=== PATIENT | male | born 1980 | race Caucasian/White ===

== ENCOUNTER → 2016-11-23 | Outpatient (CLI) | payer BC ==
[2016-11-23 11:11] LABS: CHLORIDE,CL 106 mmol/L (98-110); SODIUM,NA 139 mmol/L (136-146)
== END | disposition home or self-care (01) ==
LOC: MW.CHFP 10:35
PROVIDERS: ATTEND Nurse Practitioner Family
DX: E29.1 Testicular hypofunction (principal)
CPT/HCPCS: 36415; 80053; 80061; 84402; 84403; 85027

== ENCOUNTER 2017-06-24 10:05 | Emergency (ER) | payer BC ==
--- NOTE | 2017-06-24 10:50 | EDM.PDOC ---
ED HPI GENERAL MEDICAL PROBLEM - General Chief Complaint: General Stated Complaint: BLEEDING CYSTS Time Seen by Provider: 06/24/17 10:37 Source of Information: Reports: Patient History Limitations: Reports: No Limitations - History of Present Illness INITIAL COMMENTS - FREE TEXT/NARRATIVE: History of present illness: []This patient was at [facility] and was noted to have blood coming from his buttock. He was sent to the emergency room to be evaluated by Dr. Manrique for a pilonidal cyst. Patient denies any pain states he has never had these symptoms in the past and denies any fevers or chills. Review of systems: As per history of present illness and below otherwise all systems reviewed and negative. Past medical history: As per history of present illness and as reviewed below otherwise noncontributory. Surgical history: As per history of present illness and as reviewed below otherwise noncontributory. Social history: No reported history of drug or alcohol abuse. Family history: As per history of present illness and as reviewed below otherwise noncontributory. Physical exam: General: Well developed, well nourished in NAD HEENT: Atraumatic, normocephalic, pupils reactive, negative for conjunctival pallor or scleral icterus, mucous membranes moist, throat clear, neck supple, nontender, trachea midline. Lungs: Clear to auscultation, breath sounds equal bilaterally, chest nontender. Heart: S1S2, regular, negative for clicks, rubs, or JVD. Abdomen: Soft, nondistended, nontender. Negative for masses or hepatosplenomegaly. Negative for costovertebral tenderness. Pelvis: Stable nontender. Genitourinary: Deferred. Rectal: patient has a 0.5 cm opening at the superior cleft of the buttocks blood. She does not appear to be any purulent fluid and there is no active bleeding. Extremities: Atraumatic, negative for cords or calf pain. Neurovascular unremarkable. Neuro: Awake, alert, oriented. Cranial nerves II through XII unremarkable. Cerebellum unremarkable. Motor and sensory unremarkable throughout. Exam nonfocal. Diagnostics: [] Therapeutics: [] Impression: [] pilonidal cyst spontaneously opened and drained Plan: [] follow-up with Dr. MANRIQUE next week, clindamycin 4 times a day for 10 days, tramadol for pain if needed. Keep the area clean return if any fevers worsening pain or change in symptoms occur Definitive disposition and diagnosis as appropriate pending reevaluation and review of above. Sacral Pain Score (Numeric/FACES): 4 - Related Data Allergies Allergy/AdvReac Type Severity Reaction Status Date / Time milk Allergy Stomach Verified 06/24/17 10:20 Upset wheat Allergy Rash Verified 06/24/17 10:20 Home Meds: Home Meds Baclofen 20 mg PO DAILY 02/02/15 [History] Gabapentin 600 mg PO BEDTIME 02/02/15 [History] Lidocaine 5% [Lidoderm 5%] 1 patch TRDERM Q24H 02/02/15 [History] Testosterone Cypionate [Depo-Testosterone] 200 mg IM ASDIRECTED 02/02/15 [ History] Venlafaxine HCl 75 mg PO TID 02/02/15 [History] traZODone 1 tab PO BEDTIME 02/02/15 [History] Diclofenac Sodium [Voltaren] 75 mg PO BID 01/22/16 [History] Ondansetron HCl [Ondansetron] 4 mg PO ASDIRECTED PRN 01/22/16 [History] SUMAtriptan Succinate [Imitrex] 50 mg PO ASDIRECTED PRN 01/22/16 [History] Clindamycin HCl 300 mg PO Q4HR #40 capsule 06/24/17 [Rx] oxyCODONE ER [OxyCONTIN] 10 mg PO Q8H 06/24/17 [History] traMADol [Ultram] 50 mg PO Q8H PRN #30 tablet 06/24/17 [Rx] Past Medical History HEENT History: Reports: Other (See Below) Other HEENT History: wears glasses Cardiovascular History: Reports: Heart Murmur Respiratory History: Reports: Sleep Apnea Gastrointestinal History: Reports: None Genitourinary History: Reports: Other (See Below) Other Genitourinary History: hx of prostatitis Musculoskeletal History: Reports: Arthritis Other Musculoskeletal History: chronic pain, degenerative disc disease, Neurological History: Reports: Migraines Psychiatric History: Reports: Anxiety, Depression Endocrine/Metabolic History: Reports: Obesity/BMI 30+ Hematologic History: Reports: None Immunologic History: Reports: None Oncologic (Cancer) History: Reports: None Dermatologic History: Reports: Eczema - Infectious Disease History Infectious Disease History: Reports: Scarlet Fever - Past Surgical History Head Surgeries/Procedures: Reports: None HEENT Surgical History: Reports: Naso-Sinus Surgery, Tonsillectomy GI Surgical History: Reports: Appendectomy Other Neurological Surgeries/Procedures: 'Back surgery" Musculoskeletal Surgical History: Reports: Arthroscopic Knee, Shoulder Surgery Social & Family History - Family History Family Medical History: Noncontributory - Tobacco Use Smoking Status *Q: Never Smoker Years of Tobacco use: 3 - Caffeine Use Caffeine Use: Reports: Coffee, Soda - Alcohol Use Days Per Week of Alcohol Use: 2 Number of Drinks Per Day: 2 Total Drinks Per Week: 4 - Recreational Drug Use Recreational Drug Use: No ED ROS GENERAL - Review of Systems Review Of Systems: See Below (See history of present illness) ED EXAM, GENERAL - Physical Exam Exam: See Below (See history of present illness) Course - Vital Signs Last Recorded V/S: Last Vital Signs Temp 97.8 F 06/24/17 10:17 Pulse 102 H 06/24/17 10:17 Resp 20 06/24/17 10:17 BP 131/103 H 06/24/17 10:17 Pulse Ox 96 06/24/17 10:17 Departure - Departure Time of Disposition: 11:04 Disposition: Home, Self-Care 01 Condition: Good Clinical Impression: Cyst - pilonidal - Discharge Information Prescriptions: Clindamycin HCl 300 mg PO Q4HR #40 capsule traMADol [Ultram] 50 mg PO Q8H PRN #30 tablet PRN Reason: Pain Instructions: Incision and Drainage of a Pilonidal Cyst Referrals: Camden Manrique MD [Physician] - Tash Flores NP [Primary Care Provider] - Forms: ED Department Discharge Additional Instructions: The following information is given to patients seen in the emergency department who are being discharged to home. This information is to outline your options for follow-up care. We provide all patients seen in our emergency department with a follow-up referral. The need for follow-up, as well as the timing and circumstances, are variable depending upon the specifics of your emergency department visit. If you don't have a primary care physician on staff, we will provide you with a referral. We always advise you to contact your personal physician following an emergency department visit to inform them of the circumstance of the visit and for follow-up with them and/or the need for any referrals to a consulting specialist. The emergency department will also refer you to a specialist when appropriate. This referral assures that you have the opportunity for follow-up care with a specialist. All of these measure are taken in an effort to provide you with optimal care, which includes your follow-up. Under all circumstances we always encourage you to contact your private physician who remains a resource for coordinating your care. When calling for follow-up care, please make the office aware that this follow-up is from your recent emergency room visit. If for any reason you are refused follow-up, please contact the [facility] Emergency Department at and asked to speak to the emergency department charge nurse. Clindamycin tramadol as directed follow-up with Dr. MANRIQUE next week, return if any symptoms worsen or change or fevers occur. [facility] Specialty [facility] - General Surgery Professional Building [address] [place] [address], [address] [place] [address]
[2017-06-24 11:11] VITALS: BP 150/102
== END 2017-06-24 10:56 | disposition home or self-care (01) ==
LOC: MW.ED 10:05
DX: L05.91 Pilonidal cyst without abscess (principal); F32.9 Major depressive disorder, single episode, unspecified; Z79.899 Other long term (current) drug therapy; Z91.018 Allergy to other foods; Z91.011 Allergy to milk products
CPT/HCPCS: 10060; 99282; 99283

== ENCOUNTER 2017-09-14 06:30 | Day surgery (SDC) | payer BC ==
[~2017-09-14 06:30] MED LIST: Clindamycin Phosphate in D5W 600 MG in Premix Bag 1 BAG IV ONE
[2017-09-14] MEDS ORDERED: Ondansetron 4 MG/2 ML SDV ONE (07:02)
[2017-09-14] MEDS ORDERED: Succinylcholine/Normal Saline 200 MG/10 ML Syringe ONE (07:02)
[2017-09-14] MEDS ORDERED: Lidocaine 2% 5 ML SDV ONE (07:02)
[2017-09-14] MEDS ORDERED: Rocuronium 10 MG/ML 10 ML Syringe ONE (07:02)
[2017-09-14] MEDS ORDERED: Propofol 200 MG/20 ML SDV ONE (07:03)
[2017-09-14] MEDS ORDERED: fentaNYL 100 MCG/2 ML SDV ONE ×2 (07:03→10:08)
[2017-09-14] MEDS ORDERED: Midazolam 1 MG/ML 2 ML SDV ONE (07:03)
[2017-09-14] MEDS ORDERED: Lactated Ringers 1,000 ML IV SCH (07:15)
[2017-09-14] MEDS ORDERED: Bupivacaine 25%/EPINEPHrine/PF 30 ML ONE (07:17)
--- NOTE | 2017-09-14 07:24 | PCM.PREANE ---
Preanesthetic Assessment - Anesthesia/Transfusion/Family Hx Anesthesia History: Prior Anesthesia Without Reaction Other Type of Anesthesia Reaction Comment: pts father is allergic to the pippa , pt denies any problems with himself Family History of Anesthesia Reaction: No Transfusion History: No Prior Transfusion(s) Intubation History: Unknown - Review of Systems General: No Symptoms Pulmonary: No Symptoms Cardiovascular: No Symptoms Gastrointestinal: No Symptoms Neurological: No Symptoms Other: Reports: None - Physical Assessment O2 Sat by Pulse Oximetry: 94 Respiratory Rate: 16 Vital Signs: Last Vital Signs Temp 36.4 C 09/14/17 07:05 Pulse 89 09/14/17 07:05 Resp 16 09/14/17 07:05 BP 144/95 H 09/14/17 07:05 Pulse Ox 94 L 09/14/17 07:05 Height: 1.88 m Weight: 154.675 kg ASA Class: 3 Mental Status: Alert & Oriented x3 Airway Class: Mallampati = 3 Dentition: Reports: Normal Dentition Thyro-Mental Finger Breadths: 3 Mouth Opening Finger Breadths: 3 ROM/Head Extension: Full Lungs: Clear to Auscultation, Normal Respiratory Effort Cardiovascular: Regular Rate, Regular Rhythm - Allergies Allergies/Adverse Reactions: Allergies Allergy/AdvReac Type Severity Reaction Status Date / Time corn Allergy Airway Verified 09/07/17 16:55 Tightness milk Allergy Airway Verified 09/07/17 16:55 Tightness wheat Allergy Airway Verified 09/07/17 16:55 Tightness - Blood Blood Available: No - Anesthesia Plan Pre-Op Medication Ordered: None - Acknowledgements Anesthesia Type Planned: General Anesthesia Pt an Appropriate Candidate for the Planned Anesthesia: Yes Alternatives and Risks of Anesthesia Discussed w Pt/Guardian: Yes Pt/Guardian Understands and Agrees with Anesthesia Plan: Yes PreAnesthesia Questionnaire HEENT History: Reports: Hard of Hearing Other HEENT History: wears glasses, deaf in left ear Cardiovascular History: Reports: Heart Murmur Respiratory History: Reports: Sleep Apnea Other Respiratory History: uses CPAP Gastrointestinal History: Reports: Irritable Bowel Syndrome Genitourinary History: Reports: Other (See Below) Other Genitourinary History: hx of prostatitis Musculoskeletal History: Reports: Back Pain, Chronic, Fracture Other Musculoskeletal History: chronic pain, degenerative disc disease, Neurological History: Reports: Concussion, Migraines Psychiatric History: Reports: Anxiety, Depression Endocrine/Metabolic History: Reports: Obesity/BMI 30+ (morbid obesity BMI 43.8) Hematologic History: Reports: None Immunologic History: Reports: None Oncologic (Cancer) History: Reports: None Dermatologic History: Reports: Eczema - Infectious Disease History Infectious Disease History: Reports: Scarlet Fever - Past Surgical History HEENT Surgical History: Reports: Naso-Sinus Surgery, Tonsillectomy, Other (See Below) Other HEENT Surgeries/Procedures: has 1 dental implant GI Surgical History: Reports: Appendectomy Neurological Surgical History: Reports: Thoracic Spine Other Neurological Surgeries/Procedures: microdiscectomy of thorasic spine Musculoskeletal Surgical History: Reports: Arthroscopic Knee, ORIF, Shoulder Surgery Other Musculoskeletal Surgeries/Procedures:: left knee arthroscopy x3, right knee arthroscopy x2 with ACL repair, ORIF 5th Metacarpal (has screw), right shoulder RTCR and left shoulder labrim tear - SUBSTANCE USE Smoking Status *Q: Never Smoker Tobacco Use Within Last Twelve Months: No Days Per Week of Alcohol Use: 2 Number of Drinks Per Day: 2 Total Drinks Per Week: 4 Recreational Drug Use History: No - HOME MEDS Home Medications: Home Meds Baclofen 20 mg PO BID 02/02/15 [History] Gabapentin 600 mg PO BEDTIME 02/02/15 [History] Lidocaine 5% [Lidoderm 5%] 1 patch TRDERM BEDTIME 02/02/15 [History] Testosterone Cypionate [Depo-Testosterone] 200 mg IM ASDIRECTED 02/02/15 [ History] Venlafaxine HCl 75 mg PO TID 02/02/15 [History] traZODone 150 mg PO BEDTIME 02/02/15 [History] Diclofenac Sodium [Voltaren] 75 mg PO BID 01/22/16 [History] Ondansetron HCl [Ondansetron] 8 mg PO ASDIRECTED PRN 01/22/16 [History] SUMAtriptan Succinate [Imitrex] 50 mg PO ASDIRECTED PRN MDD 200 mg 01/22/16 [ History] EPINEPHrine [Epipen 2-Marcello] 1 dose SQ ASDIRECTED PRN 09/07/17 [History] oxyCODONE ER [OxyCONTIN] 10 mg PO TID 09/07/17 [History] - CURRENT (IN HOUSE) MEDS Current Meds: Current Medications Lactated Ringer's (Ringers, Lactated) 1,000 mls @ 100 mls/hr IV ASDIRECTED FEI Discontinued Medications Fentanyl (Sublimaze) Confirm Administered Dose 200 mcg .ROUTE .STK-MED ONE Stop: 09/14/17 07:04 Clindamycin Phosphate 600 mg/ (Premix) 50 mls @ 100 mls/hr IV ONETIME ONE Stop: 09/14/17 05:29 Bupivacaine HCl/Epinephrine Bitart (Sensorc Mpf 0.25%-Epi 1:001330) Confirm Administered Dose 30 mls @ as directed .ROUTE .STK-MED ONE Stop: 09/14/17 07:18 Lidocaine (Xylocaine-Mpf 2%) Confirm Administered Dose 5 ml .ROUTE .STK-MED ONE Stop: 09/14/17 07:03 Midazolam HCl (Versed 1 Mg/Ml) Confirm Administered Dose 2 mg .ROUTE .STK-MED ONE Stop: 09/14/17 07:04 Ondansetron HCl (Zofran) Confirm Administered Dose 4 mg .ROUTE .STK-MED ONE Stop: 09/14/17 07:03 Propofol (Diprivan 20 Ml) Confirm Administered Dose 200 mg .ROUTE .STK-MED ONE Stop: 09/14/17 07:04 Rocuronium [place] (Zemuron) Confirm Administered Dose 100 mg .ROUTE .STK-MED ONE Stop: 09/14/17 07:03 Succinylcholine Chloride (Succinylcholine In Ns Pf) Confirm Administered Dose 200 mg .ROUTE .STK-MED ONE Stop: 09/14/17 07:03
[2017-09-14] MEDS ORDERED: Clindamycin Phosphate in D5W 600 MG in Premix Bag 1 BAG IV ONE ×2 (07:45)
[2017-09-14] MEDS ORDERED: Methylene Blue 50 MG/10 ML Ampule ONE (07:54)
[2017-09-14] MEDS ORDERED: ePHEDrine 50 MG/ML SDV ONE (08:13)
[2017-09-14] MEDS ORDERED: Vasopressin 20 Units/1 ML MDV ONE (08:20)
[2017-09-14] MEDS ORDERED: Glycopyrrolate 0.2 MG/ML SDV ONE ×2 (08:21→08:27)
[2017-09-14] MEDS: fentaNYL 100 MCG/2 ML SDV IVPUSH PRN ×4 (08:55→09:15)
[2017-09-14] MEDS ORDERED: ceFAZolin 1 GM Vial ONE (09:23)
[2017-09-14] MEDS ORDERED: Sodium Chloride 0.9% 0 ML ONE (09:23)
--- NOTE | 2017-09-14 09:30 | PCM.OPNOTE ---
- General Post-Op/Procedure Note Date of Surgery/Procedure: 09/14/17 Operative Procedure(s): pilonidal cystectomy Findings: no signs of infection, a very tiny cyst, no collection; [id number] Pre Op Diagnosis: pilonidal cyst Post-Op Diagnosis: Same Anesthesia Technique: General ET Tube Primary Surgeon: Camden Manrique Pathology: sent Condition: Good
[2017-09-14 09:43] VITALS: BP 125/75
[2017-09-14] MEDS ORDERED: Acetaminophen/oxyCODONE 325-5 MG Tab PO PRN (09:46)
--- NOTE | 2017-09-14 10:02 | OR ---
SURGEON: Camden Manrique MD DATE OF PROCEDURE: 09/14/2017 PREOPERATIVE DIAGNOSIS: Pilonidal cyst. POSTOPERATIVE DIAGNOSIS: Pilonidal cyst. PROCEDURE PERFORMED: Cystectomy. COMPLICATIONS: None. FINDINGS: There was no collection. No signs or symptoms of infection. Very tiny cyst track, is positional. PROCEDURE IN DETAIL: The patient was taken to the operating room and placed in supine position. Upon induction of general endotracheal anesthesia, the patient was re-positioned into a jackknife position prone and the patient's perineum was prepped and draped in a sterile fashion. Time-out was being called in to identify, antibiotic given and procedure was then started. After assessment of appropriate landmark, a 50% methylene blue and hydrogen peroxide were injected through the place. There was an ulceration about the size of 1 cm quite high up far away from the anal opening and methylene blue injection and then using a skin scalpel, the area was excised about 3 cm and followed with irrigation. Good hemostasis was achieved by using electrocautery and the wound was then packed with 1-inch pain gauze and anesthetic agent was infiltrated. The patient was then re-positioned in the supine position and awakened, extubated, and transferred to recovery room in hemodynamically stable condition. Incision was about 3 cm and upon packing, the place was small and dry. The patient tolerated the procedure well. There were no intraoperative complications. Dr. Manrique was present through the whole procedure. SHI / RACHNA /[id number]
[2017-09-14] MEDS ORDERED: Phenylephrine/Normal Saline 100 MCG/ML 10 ML Syringe ONE (10:06)
--- NOTE | 2017-09-14 10:28 | PCM48HPAN ---
Post Anesthesia Note - EVALUATION WITHIN 48HRS OF ANESTHETIC Vital Signs in Normal Range: Yes Patient Participated in Evaluation: Yes Respiratory Function Stable: Yes Airway Patent: Yes Cardiovascular Function Stable: Yes Hydration Status Stable: Yes Pain Control Satisfactory: Yes Nausea and Vomiting Control Satisfactory: Yes Mental Status Recovered: Yes Resp Rate: 15 - COMMENTS/OBSERVATIONS Free Text/Narrative:: no anesthesia problems
== END 2017-09-14 11:05 | disposition home or self-care (01) ==
LOC: MW.SDS 06:30
PROVIDERS: ATTEND Surgery
DX: L05.91 Pilonidal cyst without abscess (principal); F41.9 Anxiety disorder, unspecified; E78.00 Pure hypercholesterolemia, unspecified; F32.9 Major depressive disorder, single episode, unspecified; L30.9 Dermatitis, unspecified; G47.00 Insomnia, unspecified; G43.909 Migraine, unspecified, not intractable, without status migrainosus; G47.33 Obstructive sleep apnea (adult) (pediatric); M17.0 Bilateral primary osteoarthritis of knee; N41.0 Acute prostatitis; E34.9 Endocrine disorder, unspecified; E66.01 Morbid (severe) obesity due to excess calories; Z68.41 Body mass index [BMI] 40.0-44.9, adult; Z91.018 Allergy to other foods; Z99.89 Dependence on other enabling machines and devices; Z79.899 Other long term (current) drug therapy; Z91.011 Allergy to milk products
CPT/HCPCS: 11770; 87070; 87075; 87205; A9270; J2250; J2405; J3010; J7120; 00910; 88304; J0690; J2704

== ENCOUNTER 2017-12-23 11:42 | Day surgery (SDC) | payer BC ==
[~2017-12-23 11:42] MED LIST changes: -Clindamycin Phosphate in D5W 600 MG in Premix Bag 1 BAG IV ONE; +Clindamycin Phosphate in D5W 600 MG in Premix Bag 1 BAG IV PRN; +Lactated Ringers 1,000 ML IV SCH
[2017-12-23] MEDS ORDERED: Bupivacaine 25%/EPINEPHrine/PF 30 ML ONE (13:09)
[2017-12-23] MEDS ORDERED: Lidocaine 2% 5 ML SDV ONE (13:14)
[2017-12-23] MEDS ORDERED: fentaNYL 250 MCG/5 ML SDV ONE (13:15)
[2017-12-23] MEDS ORDERED: Midazolam 1 MG/ML 2 ML SDV ONE (13:15)
[2017-12-23] MEDS ORDERED: Propofol 200 MG/20 ML SDV ONE ×2 (13:15)
--- NOTE | 2017-12-23 13:18 | PCM.PREANE ---
Preanesthetic Assessment - Anesthesia/Transfusion/Family Hx Anesthesia History: Prior Anesthesia Without Reaction Other Type of Anesthesia Reaction Comment: pts father is allergic to the pippa , pt denies any problems with himself Family History of Anesthesia Reaction: No Transfusion History: No Prior Transfusion(s) Intubation History: Unknown - Review of Systems General: No Symptoms Pulmonary: No Symptoms Cardiovascular: No Symptoms Gastrointestinal: No Symptoms Neurological: No Symptoms Other: Reports: None - Physical Assessment NPO Status Date: 12/22/17 NPO Status Time: 22:00 O2 Sat by Pulse Oximetry: 95 Respiratory Rate: 16 Vital Signs: Last Vital Signs Temp 36.7 C 12/23/17 11:45 Pulse 99 12/23/17 11:45 Resp 16 12/23/17 11:45 BP 158/108 H 12/23/17 11:45 Pulse Ox 95 12/23/17 11:45 Height: 1.88 m Weight: 151.953 kg ASA Class: 2 Mental Status: Alert & Oriented x3 Airway Class: Mallampati = 3 Dentition: Reports: Normal Dentition Thyro-Mental Finger Breadths: 3 Mouth Opening Finger Breadths: 2 ROM/Head Extension: Full Lungs: Clear to Auscultation, Normal Respiratory Effort Cardiovascular: Regular Rate, Regular Rhythm - Allergies Allergies/Adverse Reactions: Allergies Allergy/AdvReac Type Severity Reaction Status Date / Time corn Allergy Airway Verified 12/20/17 12:21 Tightness milk Allergy Airway Verified 12/20/17 12:21 Tightness wheat Allergy Airway Verified 12/20/17 12:21 Tightness - Blood Blood Available: No - Anesthesia Plan Pre-Op Medication Ordered: None - Acknowledgements Anesthesia Type Planned: General Anesthesia Pt an Appropriate Candidate for the Planned Anesthesia: Yes Alternatives and Risks of Anesthesia Discussed w Pt/Guardian: Yes Pt/Guardian Understands and Agrees with Anesthesia Plan: Yes PreAnesthesia Questionnaire HEENT History: Reports: Hard of Hearing Other HEENT History: wears glasses, deaf in left ear Cardiovascular History: Reports: Heart Murmur Respiratory History: Reports: Sleep Apnea Other Respiratory History: uses CPAP Gastrointestinal History: Reports: Irritable Bowel Syndrome Genitourinary History: Reports: Other (See Below) Other Genitourinary History: hx of prostatitis Musculoskeletal History: Reports: Back Pain, Chronic, Fracture, Osteoarthritis ( bilateral knees) Other Musculoskeletal History: chronic pain, degenerative disc disease, Neurological History: Reports: Concussion, Migraines Psychiatric History: Reports: Anxiety, Depression Endocrine/Metabolic History: Reports: Obesity/BMI 30+ (BMI 43.0) Hematologic History: Reports: None Immunologic History: Reports: None Oncologic (Cancer) History: Reports: None Dermatologic History: Reports: None - Infectious Disease History Infectious Disease History: Reports: Scarlet Fever - Past Surgical History Head Surgeries/Procedures: Reports: None HEENT Surgical History: Reports: Naso-Sinus Surgery, Tonsillectomy, Other (See Below) Other HEENT Surgeries/Procedures: has 1 dental implant Other Respiratory Surgeries/Procedures: hx thorasic surgery due to injury GI Surgical History: Reports: Appendectomy, Other (See Below) Other GI Surgeries/Procedures: hx excision of pilonidal cyst 3 months ago- needs redo procedure Neurological Surgical History: Reports: Thoracic Spine Other Neurological Surgeries/Procedures: microdiscectomy of thorasic spine Musculoskeletal Surgical History: Reports: Arthroscopic Knee, ORIF, Shoulder Surgery Other Musculoskeletal Surgeries/Procedures:: left knee arthroscopy x3, right knee arthroscopy x2 with ACL repair, ORIF 5th Metacarpal (has screw), right shoulder RTCR and left shoulder labrim tear - SUBSTANCE USE Smoking Status *Q: Never Smoker Recreational Drug Use History: No - HOME MEDS Home Medications: Home Meds Baclofen 20 mg PO BID 02/02/15 [History] Gabapentin 600 mg PO BEDTIME 02/02/15 [History] Lidocaine 5% [Lidoderm 5%] 1 patch TRDERM BEDTIME 02/02/15 [History] Testosterone Cypionate [Depo-Testosterone] 200 mg IM ASDIRECTED 02/02/15 [ History] Venlafaxine HCl 75 mg PO TID 02/02/15 [History] traZODone 150 mg PO BEDTIME 02/02/15 [History] Ondansetron HCl [Ondansetron] 8 mg PO ASDIRECTED PRN 01/22/16 [History] SUMAtriptan Succinate [Imitrex] 1 - 2 tab PO ASDIRECTED PRN 01/22/16 [History] EPINEPHrine [Epipen 2-Marcello] 1 dose SQ ASDIRECTED PRN 09/07/17 [History] oxyCODONE ER [OxyCONTIN] 10 mg PO TID 09/07/17 [History] - CURRENT (IN HOUSE) MEDS Current Meds: Current Medications Clindamycin Phosphate 600 mg/ (Premix) 50 mls @ 100 mls/hr IV ONETIME PRN PRN Reason: PROCEDURE Last Admin: 12/23/17 12:30 Dose: 100 mls/hr Lactated Ringer's (Ringers, Lactated) 1,000 mls @ 125 mls/hr IV ASDIRECTED [facility] Last Admin: 12/23/17 12:15 Dose: 125 mls/hr Discontinued Medications Bupivacaine HCl/Epinephrine Bitart (Sensorc Mpf 0.25%-Epi 1:[id number]) Confirm Administered Dose 30 mls @ as directed .ROUTE .STK-MED ONE Stop: 12/23/17 13:10
[2017-12-23] MEDS ORDERED: Methylene Blue 50 MG/10 ML Ampule ONE (13:31)
[2017-12-23] MEDS ORDERED: Neostigmine Methylsulfate 1 MG/ML 5 ML Syringe ONE (14:13)
[2017-12-23] MEDS ORDERED: Glycopyrrolate 0.2 MG/ML SDV ONE (14:13)
--- NOTE | 2017-12-23 14:38 | PCM.OPNOTE ---
- General Post-Op/Procedure Note Date of Surgery/Procedure: 12/23/17 Operative Procedure(s): pilonydal cystectomy and wound exploration Findings: see [id number] Pre Op Diagnosis: wound drainage Post-Op Diagnosis: Same Anesthesia Technique: General ET Tube Primary Surgeon: Camden Manrique Pathology: sent Condition: Good
[2017-12-23] MEDS ORDERED: Acetaminophen/oxyCODONE 325-10 MG Tab PO ONE (14:39)
[2017-12-23] MEDS ORDERED: fentaNYL 100 MCG/2 ML SDV ONE (14:47)
[2017-12-23] MEDS: fentaNYL 100 MCG/2 ML SDV IVPUSH PRN ×2 (14:48→14:54)
--- NOTE | 2017-12-23 15:25 | PCM.POSTAN ---
POST ANESTHESIA ASSESSMENT - MENTAL STATUS Mental Status: Alert, Oriented - RESPIRATORY Respiratory Status: Respiratory Rate WNL, Airway Patent, O2 Saturation Stable - CARDIOVASCULAR CV Status: Pulse Rate WNL, Blood Pressure Stable - GASTROINTESTINAL GI Status: No Symptoms - PAIN Pain Score: 0 - POST OP HYDRATION Hydration Status: Adequate & Stable
--- NOTE | 2017-12-23 15:25 | PCM48HPAN ---
Post Anesthesia Note - EVALUATION WITHIN 48HRS OF ANESTHETIC Vital Signs in Normal Range: Yes Patient Participated in Evaluation: Yes Respiratory Function Stable: Yes Airway Patent: Yes Cardiovascular Function Stable: Yes Hydration Status Stable: Yes Pain Control Satisfactory: Yes Nausea and Vomiting Control Satisfactory: Yes Mental Status Recovered: Yes Resp Rate: 13
[2017-12-23 15:40] VITALS: BP 125/58
--- NOTE | 2017-12-23 16:15 | OR ---
SURGEON: Camden Manrique MD DATE OF PROCEDURE: 12/23/2017 PREOPERATIVE DIAGNOSIS: Pilonidal cyst. POSTOPERATIVE DIAGNOSIS: Pilonidal cyst. PROCEDURES PERFORMED: Wound exploration and pilonidal cystectomy. COMPLICATIONS: None. FINDING: The wound was opened up a lot thicker to about 5 x 4 cm, and there is a collection on the leaf and all the necrotic tissue has been removed, but failed to find tract per se believed that the necrotic tissue is what causing the wound drainage. PROCEDURE IN DETAIL: The patient was taken to the operating room and placed in supine position. Upon induction of general endotracheal anesthesia, the patient was re-positioned into a jackknife position. Peritoneum area was prepped and draped in a sterile fashion and Gram stain C and S was sent aerobe and anaerobe, and the wound is quite far away from an opening and using a 15 blade, the whole wound area was excised and noted that deep down, there is some necrotic tissue and believe it is right on top of the sacral bone. We did not violate the periosteum. The whole area was excised and sent for pathology and using methylene blue to identify the tract that suggests sinus tract, and good hemostasis achieved using electrocautery followed with extensive irrigation. Wound was then packed with half-inch plain gauze and for appropriate dressing, the patient was re- positioned in the supine position, awakened, extubated, and transferred to recovery in hemodynamically stable condition. Postop plan is to put on the wound VAC. SHI / RACHNA /[id number]
== END 2017-12-23 15:30 | disposition home or self-care (01) ==
LOC: MW.SDS 11:42
PROVIDERS: ATTEND Surgery
DX: L05.01 Pilonidal cyst with abscess (principal); B96.89 Other specified bacterial agents as the cause of diseases classified elsewhere; B96.4 Proteus (mirabilis) (morganii) as the cause of diseases classified elsewhere; B96.20 Unspecified Escherichia coli [E. coli] as the cause of diseases classified elsewhere; B95.7 Other staphylococcus as the cause of diseases classified elsewhere; E66.9 Obesity, unspecified; Z68.41 Body mass index [BMI] 40.0-44.9, adult; G47.33 Obstructive sleep apnea (adult) (pediatric); F32.9 Major depressive disorder, single episode, unspecified; F41.9 Anxiety disorder, unspecified; Z99.89 Dependence on other enabling machines and devices; Z91.011 Allergy to milk products; Z91.018 Allergy to other foods; Z79.899 Other long term (current) drug therapy
CPT/HCPCS: 11771; 87070; 87075; 87077; 87186; 87205; 88304; J2250; J3010; J7120; J2704

== ENCOUNTER 2018-01-02 11:06 | Emergency (ER) | payer BC ==
--- NOTE | 2018-01-02 11:10 | EDM.PDOC ---
ED HPI GENERAL MEDICAL PROBLEM - General Stated Complaint: ISSUES WITH WOUND VAC SUCTION Time Seen by Provider: 01/02/18 11:10 Source of Information: Reports: Patient History Limitations: Reports: No Limitations - History of Present Illness INITIAL COMMENTS - FREE TEXT/NARRATIVE: HISTORY AND PHYSICAL: History of present illness: [] Review of systems: As per history of present illness and below otherwise all systems reviewed and negative. Past medical history: As per history of present illness and as reviewed below otherwise noncontributory. Surgical history: As per history of present illness and as reviewed below otherwise noncontributory. Social history: No reported history of drug or alcohol abuse. Family history: As per history of present illness and as reviewed below otherwise noncontributory. Physical exam: HEENT: Atraumatic, normocephalic, pupils reactive, negative for conjunctival pallor or scleral icterus, mucous membranes moist, throat clear, neck supple, nontender, trachea midline. Lungs: Clear to auscultation, breath sounds equal bilaterally, chest nontender. Heart: S1S2, regular, negative for clicks, rubs, or JVD. Abdomen: Soft, nondistended, nontender. Negative for masses or hepatosplenomegaly. Negative for costovertebral tenderness. Pelvis: Stable nontender. Genitourinary: Deferred. Rectal: Deferred. Extremities: Atraumatic, negative for cords or calf pain. Neurovascular unremarkable. Neuro: Awake, alert, oriented. Cranial nerves II through XII unremarkable. Cerebellum unremarkable. Motor and sensory unremarkable throughout. Exam nonfocal. Diagnostics: [] Therapeutics: [] Impression: [] Plan: [] - Related Data Allergies Allergy/AdvReac Type Severity Reaction Status Date / Time corn Allergy Airway Verified 12/20/17 12:21 Tightness milk Allergy Airway Verified 12/20/17 12:21 Tightness wheat Allergy Airway Verified 12/20/17 12:21 Tightness Home Meds: Home Meds Baclofen 20 mg PO BID 02/02/15 [History] Gabapentin 600 mg PO BEDTIME 02/02/15 [History] Lidocaine 5% [Lidoderm 5%] 1 patch TRDERM BEDTIME 02/02/15 [History] Testosterone Cypionate [Depo-Testosterone] 200 mg IM ASDIRECTED 02/02/15 [ History] Venlafaxine HCl 75 mg PO TID 02/02/15 [History] traZODone 150 mg PO BEDTIME 02/02/15 [History] Ondansetron HCl [Ondansetron] 8 mg PO ASDIRECTED PRN 01/22/16 [History] SUMAtriptan Succinate [Imitrex] 1 - 2 tab PO ASDIRECTED PRN 01/22/16 [History] EPINEPHrine [Epipen 2-Marcello] 1 dose SQ ASDIRECTED PRN 09/07/17 [History] oxyCODONE ER [OxyCONTIN] 10 mg PO TID 09/07/17 [History] Past Medical History HEENT History: Reports: Hard of Hearing Other HEENT History: wears glasses, deaf in left ear Cardiovascular History: Reports: Heart Murmur Respiratory History: Reports: Sleep Apnea Other Respiratory History: uses CPAP Gastrointestinal History: Reports: Irritable Bowel Syndrome Genitourinary History: Reports: Other (See Below) Other Genitourinary History: hx of prostatitis Musculoskeletal History: Reports: Back Pain, Chronic, Fracture, Osteoarthritis ( bilateral knees) Other Musculoskeletal History: chronic pain, degenerative disc disease, Neurological History: Reports: Concussion, Migraines Psychiatric History: Reports: Anxiety, Depression Endocrine/Metabolic History: Reports: Obesity/BMI 30+ (BMI 43.0) Hematologic History: Reports: None Immunologic History: Reports: None Oncologic (Cancer) History: Reports: None Dermatologic History: Reports: None - Infectious Disease History Infectious Disease History: Reports: Scarlet Fever - Past Surgical History Head Surgeries/Procedures: Reports: None HEENT Surgical History: Reports: Naso-Sinus Surgery, Tonsillectomy, Other (See Below) Other HEENT Surgeries/Procedures: has 1 dental implant Other Respiratory Surgeries/Procedures: hx thorasic surgery due to injury GI Surgical History: Reports: Appendectomy, Other (See Below) Other GI Surgeries/Procedures: hx excision of pilonidal cyst 3 months ago- needs redo procedure Neurological Surgical History: Reports: Thoracic Spine Other Neurological Surgeries/Procedures: microdiscectomy of thorasic spine Musculoskeletal Surgical History: Reports: Arthroscopic Knee, ORIF, Shoulder Surgery Other Musculoskeletal Surgeries/Procedures:: left knee arthroscopy x3, right knee arthroscopy x2 with ACL repair, ORIF 5th Metacarpal (has screw), right shoulder RTCR and left shoulder labrim tear Social & Family History - Family History Family Medical History: Noncontributory - Caffeine Use Caffeine Use: Reports: Coffee, Soda
[2018-01-02 16:54] VITALS: BP 167/92
== END 2018-01-02 12:00 | disposition left against medical advice (07) ==
LOC: MW.ED 11:06
DX: Z53.21 Procedure and treatment not carried out due to patient leaving prior to being seen by health care provider (principal)

== ENCOUNTER 2025-05-10 11:22 | Emergency (ER) | payer BC ==
[2025-05-10 12:07] LABS: BASOPHILS ABSOLUTE AUTO 0.04 K/uL (0.00-0.20); BASOPHILS PERCENT AUTO 0.3 % (0.0-1.0); EOSINOPHILS ABSOLUTE AUTO 0.18 K/uL (0.00-0.45); EOSINOPHILS PERCENT AUTO 1.4 % (0.0-6.0); IMMATURE GRAN ABSOLUTE AUTO 0.04 K/uL (0.00-0.05); IMMATURE GRAN PERCENT AUTO 0.3 % (0.0-0.4); LYMPHOCYTES ABSOLUTE AUTO 1.32 K/uL (1.00-4.80); LYMPHOCYTES PERCENT AUTO 10.3 % (24.0-44.0); MEAN PLATELET VOLUME 9.3 fL (9.4-12.4); MONOCYTES ABSOLUTE AUTO 1.10 K/uL (0.00-0.80); MONOCYTES PERCENT AUTO 8.6 % (0.0-8.0); NEUTROPHILS ABSOLUTE AUTO 10.08 K/uL (1.80-7.70); NEUTROPHILS PERCENT AUTO 79.1 % (41.0-71.0); NRBC ABSOLUTE 0.00 K/uL (0.00-0.02); NRBC PERCENT 0.0 /100WBC (0.0-0.2); PLATELET COUNT,PLT 309 K/uL (150-400); RED BLOOD CELL COUNT 4.07 M/uL (4.52-5.90); WHITE BLOOD CELL COUNT,WBC 12.76 K/uL (3.9-11.3)
[2025-05-10] MEDS: Ondansetron 4 MG/2 ML SDV IVPUSH ONE (12:23)
[2025-05-10 12:36] LABS: A/G RATIO 1.2 (0.9-1.6); ALANINE AMINOTRANSFERASE,ALT 21 IU/L (14-63); ASPARTATE AMNIOTRANSFERASE,AST 20 IU/L (15-37); BILIRUBIN TOTAL 0.4 mg/dL (0.2-1.0); BLOOD UREA NITROGEN,BUN 15 mg/dL (7.0-18.0); CARBON DIOXIDE,CO2 25.9 mmol/L (21.0-32.0); CHLORIDE,CL 99 mmol/L (98-107); CREATININE 1.9 mg/dL (0.8-1.3); GLUCOSE RANDOM 110 mg/dL (74-106); POTASSIUM,K 3.1 mmol/L (3.5-5.1); PROTEIN TOTAL,TP 6.9 g/dL (6.4-8.2); SODIUM,NA 137 mmol/L (136-148)
[2025-05-10] MEDS: Iopamidol 755 Mg/ML 100 ML Bottle IVPUSH ONE (12:38)
[2025-05-10 12:43] LABS: ESTIMATED GFR 44 mL/min (>60)
[2025-05-10] MEDS: Potassium Chloride 20 MEQ Tab.ER PO ONE (13:18)
[2025-05-10 13:23] LABS: GLUCOSE,URINE NEGATIVE (NEGATIVE); OCCULT BLOOD,URINE NEGATIVE (NEGATIVE)
[2025-05-10 13:28] LABS: APPEARANCE,URINE HAZY
[2025-05-10 13:31] LABS: EPITHELIAL CELLS,URINE FEW (NONE-FEW)
[2025-05-10] MEDS: Ampicillin/Sulbactam Na 3 GM in Sodium Chloride 0.9% 100 ML IV ONE (14:12)
[2025-05-10 15:02] VITALS: BP 107/63; PULSE 88
== END 2025-05-10 14:59 | disposition home or self-care (01) ==
LOC: MW.ED 11:22
DX: K57.32 Diverticulitis of large intestine without perforation or abscess without bleeding (principal); E87.6 Hypokalemia; E66.9 Obesity, unspecified; M19.90 Unspecified osteoarthritis, unspecified site; Z79.899 Other long term (current) drug therapy; Z88.8 Allergy status to other drugs, medicaments and biological substances; Z91.0110 Allergy to milk products, unspecified; Z90.49 Acquired absence of other specified parts of digestive tract
CPT/HCPCS: 36415; 74177; 80053; 81001; 83690; 83735; 84484; 85025; 93005; 96361; 96365; 96375; 99284; A9270; J0295; J2405; J7030; Q9967; 93010